=== PATIENT | male | born 1995 | race Caucasian/White ===

== ENCOUNTER 2019-09-15 08:34 | Emergency (ER) | payer OTHER ==
[2019-09-15 08:44] VITALS: RESP 16; TEMP 97.4
[2019-09-15] MEDS ORDERED: SODIUM CHLORIDE 0.9% 1,000 ML IV STA ×2 (08:54)
[2019-09-15] MEDS ORDERED: MORPHINE SULFATE 4 MG/ML SYRINGE IV STA (08:54)
[2019-09-15] MEDS ORDERED: KETOROLAC 30 MG/ML 1 ML VIAL IVP STA (08:54)
[2019-09-15] MEDS ORDERED: ONDANSETRON 4 MG/2 ML VIAL IVP STA (08:54)
--- NOTE | 2019-09-15 08:57 | ED ---
Abdominal Pain HPI - General Chief Complaint: Abdominal Pain Stated Complaint: Abd Pain Time Seen by Provider: 09/15/19 08:45 Source: patient, RN notes reviewed, old records reviewed Mode of arrival: ambulatory Limitations: no limitations - History of Present Illness Initial Comments: Patient is a 24-year-old male, presents emergency department today for sudden onset of right-sided flank pain. Symptoms started 2 hours ago. Patient states that he's noticed a cloudy urine. Had kidney stones in the past. This would be his third one. He moved here from [place]. Does not have a urologist at this time. He does report multiple times of vomiting today. He did have 2 episodes vomiting yesterday but denied any flank pain at that time. Patient states he's had no fevers or chills. - Related Data Previous Rx's Medication Instructions Recorded Acetaminophen-Codeine 300-30mg 1 tab PO Q4H PRN 3 Days #12 tablet 09/15/19 [Tylenol w/codeine #3] Ketorolac [Toradol] 10 mg PO Q6HR #12 tab 09/15/19 Ondansetron [Zofran] 4 mg PO Q8HR PRN #8 tab 09/15/19 Tamsulosin [Flomax] 0.4 mg PO DAILY #5 cap 09/15/19 Allergies Allergy/AdvReac Type Severity Reaction Status Date / Time amoxicillin Allergy Unknown Verified 09/15/19 08:44 Penicillins Allergy Unknown Verified 09/15/19 08:44 Review of Systems ROS Statement: Those systems with pertinent positive or pertinent negative responses have been documented in the HPI. ROS Other: All systems not noted in ROS Statement are negative. Past Medical History Additional Past Medical History / Comment(s): KIDNEY STONE Past Surgical History: No Surgical Hx Reported Past Psychological History: Anxiety Smoking Status: Never smoker Past Alcohol Use History: Daily Past Drug Use History: None Reported General Exam - General Exam Comments Initial Comments: 24-year-old male. Alert and oriented. No distress. Limitations: no limitations General appearance: alert, in no apparent distress Head exam: Present: atraumatic, normocephalic, normal inspection Eye exam: Present: normal appearance, PERRL, EOMI. Absent: scleral icterus, conjunctival injection, periorbital swelling ENT exam: Present: normal exam, mucous membranes moist Neck exam: Present: normal inspection. Absent: tenderness, meningismus, lymphadenopathy Respiratory exam: Present: normal lung sounds bilaterally. Absent: respiratory distress, wheezes, rales, rhonchi, stridor Cardiovascular Exam: Present: regular rate, normal rhythm, normal heart sounds. Absent: systolic murmur, diastolic murmur, rubs, gallop, clicks GI/Abdominal exam: Present: soft, normal bowel sounds. Absent: distended, tenderness, guarding, rebound, rigid Extremities exam: Present: normal inspection, full ROM, normal capillary refill. Absent: tenderness, pedal edema, joint swelling, calf tenderness Back exam: Present: normal inspection, CVA tenderness (R) (CVA tenderness.) Neurological exam: Present: alert, oriented X3, CN II-XII intact Psychiatric exam: Present: normal affect, normal mood Skin exam: Present: warm, dry, intact, normal color. Absent: rash Course Vital Signs 09/15/19 09/15/19 08:42 10:34 Temperature 97.4 F L Pulse Rate 73 72 Respiratory 16 16 Rate Blood Pressure 135/85 123/79 O2 Sat by Pulse 98 100 Oximetry Medical Decision Making - Medical Decision Making 24-year-old male presents today for onset of right-sided flank pain. knuckle presentations concern for kidney stone. Patient has some right-sided CVA tenderness. Vital signs are stable. Patient's urinalysis did just some white blood cells but no significant red. Due to persistent pain. Discussed possibly still concern for stone. They state the systolic all this previous kidney stone pains. The Patient does report some dysuria. Patient had a CAT scan which shows no obstructing stone or nephrolithiasis at this time. Patient has some concern for colitis that he's had no diarrhea or vomiting. Patient was given 1 dose of Rocephin and emergency department for concerns for UTI. On my review of the CAT scan does appear that there could be a 4 mm stone right at the UVJ. Patient is informed of this result. I discussed that we can treat the Patient this time with a short percent and temperature medication and have him follow-up with urology. All questions were answered. - Lab Data Result diagrams: 09/15/19 08:49 09/15/19 08:49 Lab Results 09/15/19 09/15/19 09/15/19 Range/Units 08:49 08:49 08:49 WBC 9.2 (3.8-10.6) k/uL RBC 5.28 (4.30-5.90) m/uL Hgb 16.8 (13.0-17.5) gm/dL Hct 50.1 (39.0-53.0) % MCV 94.8 (80.0-100.0) fL MCH 31.7 (25.0-35.0) pg MCHC 33.5 (31.0-37.0) g/dL RDW 12.5 (11.5-15.5) % Plt Count 345 (150-450) k/uL Neutrophils % 74 % Lymphocytes % 16 % Monocytes % 5 % Eosinophils % 0 % Basophils % 0 % Neutrophils # 6.9 (1.3-7.7) k/uL Lymphocytes # 1.4 (1.0-4.8) k/uL Monocytes # 0.5 (0-1.0) k/uL Eosinophils # 0.0 (0-0.7) k/uL Basophils # 0.0 (0-0.2) k/uL PT 11.4 (9.0-12.0) sec INR 1.1 (<1.2) APTT 27.8 (22.0-30.0) sec Sodium 140 (137-145) mmol/L Potassium 4.7 (3.5-5.1) mmol/L Chloride 104 (98-107) mmol/L Carbon Dioxide 25 (22-30) mmol/L Anion Gap 11 mmol/L BUN 16 (9-20) mg/dL Creatinine 0.91 (0.66-1.25) mg/dL Est GFR (CKD-EPI)AfAm >90 (>60 ml/min/1.73 sqM) Est GFR (CKD-EPI)NonAf >90 (>60 ml/min/1.73 sqM) Glucose 97 (74-99) mg/dL Calcium 10.3 H (8.4-10.2) mg/dL Total Bilirubin 0.8 (0.2-1.3) mg/dL AST 29 (17-59) U/L ALT 34 (4-49) U/L Alkaline Phosphatase 61 (38-126) U/L Total Protein 8.5 H (6.3-8.2) g/dL Albumin 5.3 H (3.5-5.0) g/dL Amylase 73 (30-110) U/L Lipase 98 (23-300) U/L Urine Color Urine Appearance (Clear) Urine pH (5.0-8.0) Ur Specific [place] (1.001-1.035) Urine Protein (Negative) Urine Glucose (UA) (Negative) Urine Ketones (Negative) Urine Blood (Negative) Urine Nitrite (Negative) Urine Bilirubin (Negative) Urine Urobilinogen (<2.0) mg/dL Ur Leukocyte Esterase (Negative) Urine RBC (0-5) /hpf Urine WBC (0-5) /hpf Ur Squamous Epith Cells (0-4) /hpf Urine Mucus (None) /hpf 09/15/19 Range/Units 09:48 WBC (3.8-10.6) k/uL RBC (4.30-5.90) m/uL Hgb (13.0-17.5) gm/dL Hct (39.0-53.0) % MCV (80.0-100.0) fL MCH (25.0-35.0) pg MCHC (31.0-37.0) g/dL RDW (11.5-15.5) % Plt Count (150-450) k/uL Neutrophils % % Lymphocytes % % Monocytes % % Eosinophils % % Basophils % % Neutrophils # (1.3-7.7) k/uL Lymphocytes # (1.0-4.8) k/uL Monocytes # (0-1.0) k/uL Eosinophils # (0-0.7) k/uL Basophils # (0-0.2) k/uL PT (9.0-12.0) sec INR (<1.2) APTT (22.0-30.0) sec Sodium (137-145) mmol/L Potassium (3.5-5.1) mmol/L Chloride (98-107) mmol/L Carbon Dioxide (22-30) mmol/L Anion Gap mmol/L BUN (9-20) mg/dL Creatinine (0.66-1.25) mg/dL Est GFR (CKD-EPI)AfAm (>60 ml/min/1.73 sqM) Est GFR (CKD-EPI)NonAf (>60 ml/min/1.73 sqM) Glucose (74-99) mg/dL Calcium (8.4-10.2) mg/dL Total Bilirubin (0.2-1.3) mg/dL AST (17-59) U/L ALT (4-49) U/L Alkaline Phosphatase (38-126) U/L Total Protein (6.3-8.2) g/dL Albumin (3.5-5.0) g/dL Amylase (30-110) U/L Lipase (23-300) U/L Urine Color Yellow Urine Appearance Cloudy (Clear) Urine pH 6.0 (5.0-8.0) Ur Specific [place] 1.031 (1.001-1.035) Urine Protein 1+ H (Negative) Urine Glucose (UA) Negative (Negative) Urine Ketones Negative (Negative) Urine Blood Negative (Negative) Urine Nitrite Negative (Negative) Urine Bilirubin Negative (Negative) Urine Urobilinogen <2.0 (<2.0) mg/dL Ur Leukocyte Esterase Moderate H (Negative) Urine RBC 1 (0-5) /hpf Urine WBC 8 H (0-5) /hpf Ur Squamous Epith Cells <1 (0-4) /hpf Urine Mucus Many H (None) /hpf - Radiology Data Radiology results: report reviewed CT shows bilateral nonobstructing nephrolithiasis. Labs of the colon involving the proximal transverse colon and descending colon and sigmoid colon. Correlate for excluding colitis. Bilateral lysis at L5 with grade 1 spondylolisthesis of L5-S1. Disposition Clinical Impression: Right flank pain Disposition: HOME SELF-CARE Condition: Good Instructions (If sedation given, give patient instructions): Flank Pain (ED) Additional Instructions: Patient advised to rest, remain hydrated. Take the pain medication and Flomax as prescribed. Return to the emergency department if any alarming signs or symptoms occur. Prescriptions: Tamsulosin [Flomax] 0.4 mg PO DAILY #5 cap Ketorolac [Toradol] 10 mg PO Q6HR #12 tab Acetaminophen-Codeine 300-30mg [Tylenol w/codeine #3] 1 tab PO Q4H PRN 3 Days #12 tablet PRN Reason: Pain Ondansetron [Zofran] 4 mg PO Q8HR PRN #8 tab PRN Reason: Nausea And Vomiting Is patient prescribed a controlled substance at d/c from ED?: No Referrals: Nonstaff,Physician [REFERRING] - 1-2 days Leopoldo Forrest MD [STAFF PHYSICIAN] - 1-2 days Time of Disposition: 11:32
[2019-09-15 09:15] LABS: INR 1.1 (<1.2); Partial Thromboplastin Time 27.8 sec (22.0-30.0); Prothrombin Time 11.4 sec (9.0-12.0)
[2019-09-15 09:16] LABS: ALT 34 U/L (4-49); AST 29 U/L (17-59); African American GFR (CKD) >90 (>60 ml/min/1.73 sqM); Albumin 5.3 g/dL (3.5-5.0); Alkaline Phosphatase 61 U/L (38-126); Amylase 73 U/L (30-110); Anion Gap 11 mmol/L; Blood Urea Nitrogen 16 mg/dL (9-20); Calcium 10.3 mg/dL (8.4-10.2); Carbon Dioxide 25 mmol/L (22-30); Chloride 104 mmol/L (98-107); Glucose 97 mg/dL (74-99); Non-African American GFR(CKD) >90 (>60 ml/min/1.73 sqM); Potassium 4.7 mmol/L (3.5-5.1); Sodium 140 mmol/L (137-145); Total Bilirubin 0.8 mg/dL (0.2-1.3); Total Protein 8.5 g/dL (6.3-8.2)
[2019-09-15 09:20] LABS: Basophils % (A) 0 %; Eosinophils % (A) 0 %; HCT 50.1 % (39.0-53.0); HGB 16.8 gm/dL (13.0-17.5); Lymphocytes # (A) 1.4 k/uL (1.0-4.8); Lymphocytes % (A) 16 %; MCH 31.7 pg (25.0-35.0); MCHC 33.5 g/dL (31.0-37.0); MCV 94.8 fL (80.0-100.0); Mean Platelet Volume 7.7; Monocytes # (A) 0.5 k/uL (0-1.0); Monocytes % (A) 5 %; Neutrophils # (A) 6.9 k/uL (1.3-7.7); Neutrophils % (A) 74 %; Platelet Count 345 k/uL (150-450); RBC 5.28 m/uL (4.30-5.90); RDW 12.5 % (11.5-15.5); WBC 9.2 k/uL (3.8-10.6)
--- NOTE | 2019-09-15 09:45 | XR ---
EXAMINATION TYPE: XR KUB , 2 VIEWS DATE OF EXAM ORDERED: 09/15/2019 HISTORY: abdominal pain. COMPARISON: None. FINDINGS: Lung bases are clear. Within the abdomen, the abdominal gas pattern is normal. There is no evidence of obstruction or free air. No unusual calcifications are seen. IMPRESSION: NO ACUTE INTRA-ABDOMINAL ABDOMINAL ABNORMALITY.
[2019-09-15 10:08] LABS: Appearance,Urine Cloudy (Clear); Bilirubin,Urine Negative (Negative); Blood,Urine Negative (Negative); Color,Urine Yellow; Glucose,Urine (UA) Negative (Negative); Ketones,Urine Negative (Negative); Leukocyte Esterase,Urine Moderate (Negative); Mucus,Urine Many /hpf; Nitrite,Urine Negative (Negative); Protein,Urine 1+ (Negative); RBC,Urine 1 /hpf (0-5); Specific Gravity,Urine 1.031 (1.001-1.035); Squamous Epithelial Cell,Urine <1 /hpf (0-4); Urobilinogen,Urine <2.0 mg/dL (<2.0); WBC,Urine 8 /hpf (0-5)
[2019-09-15] MEDS ORDERED: cefTRIAXone IN SWFI 1,000 MG/10 ML SYRINGE IVP STA (10:16)
[2019-09-15] MEDS ORDERED: HYDROmorphone 1 MG/ML 1 ML SYRINGE IVP STA (10:24)
--- NOTE | 2019-09-15 10:42 | CT ---
EXAMINATION TYPE: CT abdomen pelvis wo con DATE OF EXAM: 09/15/2019 COMPARISON: None. HISTORY: Right flank pain CT DLP: 365.8 mGycm Automated exposure control for dose reduction was used. FINDINGS: Visualized portions of the lungs are clear. There is no pleural or pericardial fluid. The h eart is not enlarged. Within the abdomen, the liver, spleen and gallbladder are normal. Both adrenal glands are normal. There is 2 mm calculus in the anterior middle pole calyx of the right kidney. There is a 2 to 3 mm ca lculus in the anterior lower pole calyx of the right kidney. There is no evidence of hydronephrosis. There is a 4 mm calculus in the posterior pole calyx of the left kidney. There is a smaller 1 to 2 mm calculus in the anterior middle pole calyx of the left kidney. There is no evidence of hydronephrosi s. Very Limited views of the pancreas are normal. There is no significant retroperitoneal, inguinal or iliac adenopathy. The bladder is collapsed. There is no significant diverticular change and there is no radiographic evidence of diverticulitis. There is collapse of the proximal transverse colon making assessment wall thickness difficult. There appears to be some thickening of the descending colon and sigmoid colon. Small bowel loops are normal caliber. The bilateral lysis at L5 with a grade 1 spondylolisthesis of L5 on S1. IMPRESSION: 1. BILATERAL NONOBSTRUCTING NEPHROLITHIASIS. 2. COLLAPSE OF THE COLON INVOLVING THE PROXIMAL TRANSVERSE COLON, DESCENDING COLON AND SIGMOID COLON. PLEASE CORRELATE TO EXCLUDE COLITIS. 3. BILATERAL LYSIS AT L5 WITH A GRADE 1 SPONDYLOLISTHESIS OF L5 ON S1.
[2019-09-15] MEDS ORDERED: TAMSULOSIN 0.4 MG CAP.ER.24H PO STA (11:43)
[2019-09-15 12:21] VITALS: BP 122/65; PULSE 69
[2019-09-15] MEDS ORDERED: MORPHINE SULFATE 2 MG/ML SYRINGE IVP ONE (12:39)
[2019-09-17 16:37] LABS: C. trachomatis,PCR Negative (Neg,Equiv); Chlamydia trachomatis Source Urine
[2019-09-17 16:44] LABS: N. gonorrhoeae,PCR Negative (Neg,Equiv); Neisseria Source Urine
== END 2019-09-15 12:45 | disposition home or self-care (01) ==
LOC: EC 08:34
DX: R10.9 Unspecified abdominal pain (principal); R11.10 Vomiting, unspecified; Z88.0 Allergy status to penicillin
CPT/HCPCS: 36415; 80053; 82150; 83690; 85025; 85610; 85730; 81001; 87491; 87591; 87086; 74018; 74176; 99285; 96374; 96375 ×4; 96376; 96361 ×3; J2270 ×2; J2405; J0696; J1885; J1170

== ENCOUNTER 2019-12-12 13:50 | Emergency (ER) | payer OTHER ==
[2019-12-12 14:16] VITALS: BP 131/91; PULSE 103; RESP 20; TEMP 98.5
[2019-12-12] MEDS ORDERED: HYDROcodone/APAP 7.5-325MG 1 EACH TAB PO ONE (14:25)
[2019-12-12] MEDS ORDERED: IBUPROFEN 600 MG TAB PO STA (14:25)
[2019-12-12] MEDS ORDERED: ACET/COD 300 MG/30 MG STARTER PACK 6 TAB BTL PO STA (14:25)
--- NOTE | 2019-12-12 14:29 | ED ---
ENT HPI - General Chief complaint: Dental/Oral Stated complaint: Dental Pain Time Seen by Provider: 12/12/19 14:19 Source: patient, RN notes reviewed Mode of arrival: ambulatory Limitations: no limitations - History of Present Illness Initial comments: 24-year-old male presents emergency department tingling left lower dental pain. Patient had severe pain. Patient states that he had a filling fall last week states his tooth cracked denies severe pain. Patient is an appointment with his dentist tomorrow. Patient denies any fevers chills he states he cannot tolerate the pain is concern for possible infection. - Related Data Previous Rx's Medication Instructions Recorded Acetaminophen-Codeine 300-30mg 1 tab PO Q4H PRN 3 Days #12 tablet 09/15/19 [Tylenol w/codeine #3] Ketorolac [Toradol] 10 mg PO Q6HR #12 tab 09/15/19 Ondansetron [Zofran] 4 mg PO Q8HR PRN #8 tab 09/15/19 Tamsulosin [Flomax] 0.4 mg PO DAILY #5 cap 09/15/19 Clindamycin HCl 300 mg PO Q6HR #40 cap 12/12/19 Allergies Allergy/AdvReac Type Severity Reaction Status Date / Time amoxicillin Allergy Unknown Verified 12/12/19 14:14 Penicillins Allergy Unknown Verified 12/12/19 14:14 Review of Systems ROS Statement: Those systems with pertinent positive or pertinent negative responses have been documented in the HPI. ROS Other: All systems not noted in ROS Statement are negative. Past Medical History Additional Past Medical History / Comment(s): KIDNEY STONE Past Surgical History: No Surgical Hx Reported Past Psychological History: Anxiety Smoking Status: Never smoker Past Alcohol Use History: Daily, Rare Past Drug Use History: None Reported General Exam Limitations: no limitations General appearance: alert, in no apparent distress Head exam: Present: atraumatic, normocephalic, normal inspection Eye exam: Present: normal appearance, PERRL, EOMI. Absent: scleral icterus, conjunctival injection, periorbital swelling ENT exam: Present: mucous membranes moist. Absent: normal exam, normal oropharynx (Dental fracture left lower no drainable abscess) Neck exam: Present: normal inspection, full ROM. Absent: tenderness, meningismus, lymphadenopathy Respiratory exam: Present: normal lung sounds bilaterally. Absent: respiratory distress, wheezes, rales, rhonchi, stridor Cardiovascular Exam: Present: regular rate, normal rhythm, normal heart sounds. Absent: systolic murmur, diastolic murmur, rubs, gallop, clicks Course Vital Signs 12/12/19 14:14 Temperature 98.5 F Pulse Rate 103 H Respiratory 20 Rate Blood Pressure 131/91 O2 Sat by Pulse 99 Oximetry Medical Decision Making - Medical Decision Making Patient has dental fracture left lower there is concern for dental infection and she's had increase in pain we started on clindamycin and has appointment with dentist tomorrow. Disposition Clinical Impression: Fracture of tooth, Toothache Disposition: HOME SELF-CARE Condition: Stable Instructions (If sedation given, give patient instructions): Toothache (ED) Additional Instructions: Please return to the Emergency Department if symptoms worsen or any other concerns. Prescriptions: Clindamycin HCl 300 mg PO Q6HR #40 cap Is patient prescribed a controlled substance at d/c from ED?: No Referrals: None,Stated [Primary Care Provider] - 1-2 days Time of Disposition: 14:28
== END 2019-12-12 14:36 | disposition home or self-care (01) ==
LOC: EC 13:50
DX: S02.5XXA Fracture of tooth (traumatic), initial encounter for closed fracture (principal); Z88.0 Allergy status to penicillin; W19.XXXA Unspecified fall, initial encounter
CPT/HCPCS: 99282

== ENCOUNTER 2020-02-19 08:35 | Emergency (ER) | payer OTHER ==
[2020-02-19 08:42] VITALS: BP 118/83; PULSE 83; RESP 18; TEMP 97.4
--- NOTE | 2020-02-19 09:04 | ED ---
Psych HPI - General Chief Complaint: Psychiatric Symptoms Stated Complaint: withdrawal Time Seen by Provider: 02/19/20 08:46 Source: patient Mode of arrival: ambulatory - History of Present Illness Initial Comments: Patient is 24-year-old male presenting to emergency Department with a chief complaint of opiate withdrawal. Patient has a history of fentanyl abuse. Patient reports he uses fentanyl almost daily. Reports 2 days ago he saw who started him on a Suboxone treatment. Patient reports yesterday at 1500 was the last dose of fentanyl. Patient reports this morning is 0600 he took 8 mg of Suboxone. Patient reports his withdrawal symptoms have not resolved. States states he is even more jittery along with nausea and vomiting. Patient states he wants to "crawl out of his skin". - Related Data Previous Rx's Medication Instructions Recorded Acetaminophen-Codeine 300-30mg 1 tab PO Q4H PRN 3 Days #12 tablet 09/15/19 [Tylenol w/codeine #3] Ketorolac [Toradol] 10 mg PO Q6HR #12 tab 09/15/19 Ondansetron [Zofran] 4 mg PO Q8HR PRN #8 tab 09/15/19 Tamsulosin [Flomax] 0.4 mg PO DAILY #5 cap 09/15/19 Clindamycin HCl 300 mg PO Q6HR #40 cap 12/12/19 Allergies Allergy/AdvReac Type Severity Reaction Status Date / Time amoxicillin Allergy Unknown Verified 02/19/20 08:42 Penicillins Allergy Unknown Verified 02/19/20 08:42 Review of Systems ROS Statement: Those systems with pertinent positive or pertinent negative responses have been documented in the HPI. ROS Other: All systems not noted in ROS Statement are negative. Past Medical History Additional Past Medical History / Comment(s): KIDNEY STONE, fentnyl abuse - snort History of Any Multi-Drug Resistant Organisms: None Reported Past Surgical History: No Surgical Hx Reported Additional Past Surgical History / Comment(s): finger Past Psychological History: Anxiety Smoking Status: Never smoker Past Alcohol Use History: Daily, Rare Past Drug Use History: Opiates General Exam Limitations: no limitations General appearance: alert, anxious Head exam: Present: atraumatic, normocephalic, normal inspection Eye exam: Present: normal appearance Pupils: Present: miosis ENT exam: Present: normal exam, mucous membranes moist Neck exam: Present: normal inspection, full ROM Respiratory exam: Present: normal lung sounds bilaterally Cardiovascular Exam: Present: regular rate, normal rhythm, normal heart sounds Extremities exam: Present: normal inspection, full ROM Back exam: Present: normal inspection, full ROM Neurological exam: Present: alert, oriented X3 Psychiatric exam: Present: normal affect, anxious, other (Tremors) Skin exam: Present: warm, dry, intact, normal color Course Vital Signs 02/19/20 08:37 Temperature 97.4 F L Pulse Rate 83 Respiratory 18 Rate Blood Pressure 118/83 O2 Sat by Pulse 100 Oximetry Medical Decision Making - Medical Decision Making Patient is a 24-year-old male with history of mental abuse presenting to the emergency department with a chief complaint of opiate withdrawal. Patient used fentanyl yesterday. Today at 0600 started on Suboxone. Patient reports his withdrawal symptoms have not resolved even after starting medication. On exam patient is tremulous, clammy, anxious with nausea and vomiting. Patient was given IM Zofran and Benadryl. I had a thorough discussion with the patient regarding opiate abuse. Patient reports some improvement in symptoms. Patient will be discharged and advised to follow-up with his primary care. Return parameters discussed. Case discussed with physician. Disposition Clinical Impression: Opiate withdrawal Disposition: HOME SELF-CARE Condition: Good Instructions (If sedation given, give patient instructions): Opioid Withdrawal (ED), Narcotic Withdrawal (ED) Additional Instructions: Follow up with primary care. Return to emergency department if symptoms worsen. Is patient prescribed a controlled substance at d/c from ED?: No Referrals: Marlon Foley MD [Primary Care Provider] - 1-2 days Time of Disposition: 09:27
[2020-02-19] MEDS ORDERED: cloNIDine HCL 0.1 MG TAB PO STA (09:09)
[2020-02-19] MEDS ORDERED: ONDANSETRON 4 MG/2 ML VIAL IVP STA (09:10)
[2020-02-19] MEDS ORDERED: SODIUM CHLORIDE 0.9% 1,000 ML IV STA (09:10)
[2020-02-19] MEDS ORDERED: diphenhydrAMINE 50 MG/ML 1 ML VIAL IM STA ×2 (09:15→09:19)
[2020-02-19] MEDS ORDERED: ONDANSETRON 4 MG/2 ML VIAL IM STA (09:19)
== END 2020-02-19 09:32 | disposition home or self-care (01) ==
LOC: SUPCPDRO 08:35 → EC 08:35
DX: F11.23 Opioid dependence with withdrawal (principal); R11.2 Nausea with vomiting, unspecified; Z88.0 Allergy status to penicillin
CPT/HCPCS: 99283; 96372 ×2; J1200; J2405

== ENCOUNTER 2020-10-12 18:38 | Emergency (ER) | payer OTHER ==
[2020-10-12 18:41] VITALS: RESP 18; TEMP 98.7
--- NOTE | 2020-10-12 18:45 | ED ---
Nausea/Vomiting/Diarrhea HPI - General Chief complaint: Nausea/Vomiting/Diarrhea Stated complaint: nausea, vomiting Time Seen by Provider: 10/12/20 18:43 Source: patient Mode of arrival: ambulatory Limitations: no limitations - History of Present Illness Initial comments: 25-year-old male presenting to the emergency department with a chief complaint of nausea vomiting diarrhea. States the symptoms started about 4 days ago after he woke up in the morning. Patient states the night prior today he went out to eat at a local restaurant. Patient states he had chicken Parmesan pizza but did not have any symptoms immediately afterwards. Patient reports nausea with multiple episodes, loose nonbloody vomiting. He also reports profuse watery diarrhea. States he is not able to keep any food down over the past 2 days. States she has been attempting to drink fluids. He also reports generalized fatigue over the last 2 days because he is not able to keep anything down. Patient reports no significant abdominal, chest or back pain. Denies any urin travis symptoms. Denies any penile discharge, testicular swelling or tenderness. - Related Data Home Medications Medication Instructions Recorded Confirmed Buprenorphine HCl/Naloxone HCl 1 film SL BID 10/12/20 10/12/20 [Suboxone 8 mg-2 mg Sl Film] QUEtiapine [SEROquel] 100 mg PO HS 10/12/20 10/12/20 Allergies Allergy/AdvReac Type Severity Reaction Status Date / Time amoxicillin Allergy Unknown Verified 10/12/20 19:27 Penicillins Allergy Unknown Verified 10/12/20 19:27 Review of Systems ROS Statement: Those systems with pertinent positive or pertinent negative responses have been documented in the HPI. ROS Other: All systems not noted in ROS Statement are negative. Past Medical History Additional Past Medical History / Comment(s): KIDNEY STONE History of Any Multi-Drug Resistant Organisms: None Reported Past Surgical History: No Surgical Hx Reported Additional Past Surgical History / Comment(s): finger Past Psychological History: Anxiety Smoking Status: Vaper Past Alcohol Use History: Daily, Rare Past Drug Use History: Opiates General Exam Limitations: no limitations General appearance: alert, in no apparent distress Head exam: Present: atraumatic, normal inspection Eye exam: Present: normal appearance, PERRL, EOMI Pupils: Present: normal accommodation ENT exam: Present: normal exam, normal oropharynx, mucous membranes moist, TM's normal bilaterally, normal external ear exam Neck exam: Present: normal inspection, full ROM. Absent: tenderness Respiratory exam: Present: normal lung sounds bilaterally. Absent: respiratory distress, wheezes, rales Cardiovascular Exam: Present: regular rate, normal rhythm, normal heart sounds. Absent: systolic murmur, diastolic murmur GI/Abdominal exam: Present: soft. Absent: distended, guarding, rebound, rigid Extremities exam: Present: normal inspection, full ROM, normal capillary refill. Absent: tenderness, pedal edema, joint swelling Back exam: Present: normal inspection, full ROM. Absent: tenderness, CVA tenderness (R), CVA tenderness (L) Neurological exam: Present: alert, oriented X3, normal gait Psychiatric exam: Present: normal affect, normal mood Skin exam: Present: warm, dry, intact, normal color Course Vital Signs 10/12/20 10/12/20 18:39 20:39 Temperature 98.7 F 98.7 F Pulse Rate 80 75 Respiratory 18 18 Rate Blood Pressure 135/85 130/73 O2 Sat by Pulse 99 100 Oximetry Medical Decision Making - Medical Decision Making 25-year-old male presenting to emergency Department with a chief complaint of nausea vomiting diarrhea. On physical examination, patient has no abdominal tenderness. No CVA tenderness as well. CBC CMP unremarkable. He does have mild elevation ALT. UA shows no significant findings. Patient was given antiemetics and IV fluids. On reevaluation patient reports improvement of symptoms. He will be discharged with Zofran advised to obtain [id number] antidiarrheal medication. Also advised to follow bananas, rice applesauce and toast diet. I suspect the patient likely has gastritis after eating out at a restaurant. Strict return parameters were thoroughly discussed the patient is understanding and agreeable. Case discussed with physician. - Lab Data Result diagrams: 10/12/20 18:59 10/12/20 18:59 Lab Results 10/12/20 10/12/20 10/12/20 Range/Units 18:59 18:59 19:14 WBC 8.4 (3.8-10.6) k/uL RBC 5.18 (4.30-5.90) m/uL Hgb 15.8 (13.0-17.5) gm/dL Hct 47.9 (39.0-53.0) % MCV 92.5 (80.0-100.0) fL MCH 30.5 (25.0-35.0) pg MCHC 32.9 (31.0-37.0) g/dL RDW 12.9 (11.5-15.5) % Plt Count 241 (150-450) k/uL MPV 7.2 Neutrophils % (Manual) 64 % Band Neuts % (Manual) 2 % Lymphocytes % (Manual) 27 % Monocytes % (Manual) 5 % Eosinophils % (Manual) 2 % Neutrophils # (Manual) 5.50 (1.3-7.7) k/uL Lymphocytes # (Manual) 2.27 (1.0-4.8) k/uL Monocytes # (Manual) 0.42 (0-1.0) k/uL Eosinophils # (Manual) 0.17 (0-0.7) k/uL Nucleated RBCs 0 (0-0) /100 WBC Manual Slide Review Performed Sodium 141 (137-145) mmol/L Potassium 3.9 (3.5-5.1) mmol/L Chloride 102 (98-107) mmol/L Carbon Dioxide 30 (22-30) mmol/L Anion Gap 9 mmol/L BUN 11 (9-20) mg/dL Creatinine 0.89 (0.66-1.25) mg/dL Est GFR (CKD-EPI)AfAm >90 (>60 ml/min/1.73 sqM) Est GFR (CKD-EPI)NonAf >90 (>60 ml/min/1.73 sqM) Glucose 95 (74-99) mg/dL Calcium 9.5 (8.4-10.2) mg/dL Total Bilirubin 0.4 (0.2-1.3) mg/dL AST 44 (17-59) U/L ALT 94 H (4-49) U/L Alkaline Phosphatase 56 (38-126) U/L Total Protein 7.8 (6.3-8.2) g/dL Albumin 4.7 (3.5-5.0) g/dL Lipase 100 (23-300) U/L Urine Color Yellow Urine Appearance Clear (Clear) Urine pH 6.0 (5.0-8.0) Ur Specific [place] 1.027 (1.001-1.035) Urine Protein Trace H (Negative) Urine Glucose (UA) Negative (Negative) Urine Ketones Negative (Negative) Urine Blood Trace H (Negative) Urine Nitrite Negative (Negative) Urine Bilirubin Negative (Negative) Urine Urobilinogen <2.0 (<2.0) mg/dL Ur Leukocyte Esterase Negative (Negative) Urine RBC 6 H (0-5) /hpf Urine WBC 1 (0-5) /hpf Urine Mucus Moderate H (None) /hpf Disposition Clinical Impression: Gastroenteritis, Nausea vomiting and diarrhea Disposition: HOME SELF-CARE Condition: Stable Instructions (If sedation given, give patient instructions): Gastroenteritis (DC) Additional Instructions: Drink Gatorade or Pedialyte. Follow the bananas, rice, applesauce and toast diet. Take prescribed medication as directed. Obtain [id number] antidiarrheal medication. Return to emergency department if symptoms worsen. Is patient prescribed a controlled substance at d/c from ED?: No Referrals: Nonstaff,Physician [Primary Care Provider] - 1-2 days Time of Disposition: 20:25
[2020-10-12] MEDS ORDERED: ONDANSETRON 4 MG/2 ML VIAL IVP STA (18:50)
[2020-10-12] MEDS ORDERED: SODIUM CHLORIDE 0.9% 1,000 ML IV STA (18:50)
[2020-10-12] MEDS ORDERED: PANTOPRAZOLE 40 MG/10 ML VIAL IVP STA (18:50)
[2020-10-12 19:19] LABS: HCT 47.9 % (39.0-53.0); HGB 15.8 gm/dL (13.0-17.5); MCH 30.5 pg (25.0-35.0); MCHC 32.9 g/dL (31.0-37.0); MCV 92.5 fL (80.0-100.0); Mean Platelet Volume 7.2; Platelet Count 241 k/uL (150-450); RBC 5.18 m/uL (4.30-5.90); RDW 12.9 % (11.5-15.5); WBC 8.4 k/uL (3.8-10.6)
[2020-10-12 19:22] LABS: Appearance,Urine Clear (Clear); Bilirubin,Urine Negative (Negative); Blood,Urine Trace (Negative); Color,Urine Yellow; Glucose,Urine (UA) Negative (Negative); Ketones,Urine Negative (Negative); Leukocyte Esterase,Urine Negative (Negative); Mucus,Urine Moderate /hpf; Nitrite,Urine Negative (Negative); Protein,Urine Trace (Negative); RBC,Urine 6 /hpf (0-5); Specific Gravity,Urine 1.027 (1.001-1.035); Urobilinogen,Urine <2.0 mg/dL (<2.0); WBC,Urine 1 /hpf (0-5)
[2020-10-12 19:23] LABS: ALT 94 U/L (4-49); AST 44 U/L (17-59); African American GFR (CKD) >90 (>60 ml/min/1.73 sqM); Albumin 4.7 g/dL (3.5-5.0); Alkaline Phosphatase 56 U/L (38-126); Anion Gap 9 mmol/L; Blood Urea Nitrogen 11 mg/dL (9-20); Calcium 9.5 mg/dL (8.4-10.2); Carbon Dioxide 30 mmol/L (22-30); Chloride 102 mmol/L (98-107); Glucose 95 mg/dL (74-99); Lipase 100 U/L (23-300); Non-African American GFR(CKD) >90 (>60 ml/min/1.73 sqM); Potassium 3.9 mmol/L (3.5-5.1); Sodium 141 mmol/L (137-145); Total Bilirubin 0.4 mg/dL (0.2-1.3); Total Protein 7.8 g/dL (6.3-8.2)
[2020-10-12 20:40] VITALS: BP 130/73; PULSE 75
[2020-10-12 20:44] LABS: Band Neutrophils % 2 %; Eosinophils # (M) 0.17 k/uL (0-0.7); Lymphocytes # (M) 2.27 k/uL (1.0-4.8); Monocytes # (M) 0.42 k/uL (0-1.0); Neutrophils % (M) 64 %; Nucleated Red Blood Cells 0 /100 WBC (0-0); Total Cells Counted 100
== END 2020-10-12 20:40 | disposition home or self-care (01) ==
LOC: EC 18:38
DX: K52.9 Noninfective gastroenteritis and colitis, unspecified (principal); F41.9 Anxiety disorder, unspecified; F17.290 Nicotine dependence, other tobacco product, uncomplicated; Z79.899 Other long term (current) drug therapy; Z88.0 Allergy status to penicillin
CPT/HCPCS: 36415; 80053; 83690; 85025; 81001; 99284; 96374; 96375; 96361; J2405; C9113

== ENCOUNTER 2020-11-11 11:09 | Emergency (ER) | payer OTHER ==
[2020-11-11 11:19] VITALS: TEMP 97.8
[2020-11-11] MEDS ORDERED: ONDANSETRON 4 MG/2 ML VIAL IVP STA (11:47)
[2020-11-11] MEDS ORDERED: SODIUM CHLORIDE 0.9% 500 ML 500 ML IV ONE (11:47)
[2020-11-11] MEDS ORDERED: KETOROLAC 15 MG/ML 1 ML VIAL IVP STA (11:47)
--- NOTE | 2020-11-11 11:51 | ED ---
Abdominal Pain HPI - General Chief Complaint: Abdominal Pain Stated Complaint: Detox Source: patient, EMS Mode of arrival: EMS Limitations: no limitations - History of Present Illness Initial Comments: 25-year-old male with history of heroin abuse presenting for "addiction help". Patient states that he is addicted to heroin and has attempted rehab multiple times without success. pt states he has been decreasing use and "did a little bit" of heroin at 2AM this morning because he felt like he was withdrawing. Patient states he always gets a slight headache chills nausea and loose stools and generalized body pain when he withdraws from opioids. Patient states he didnt come for symptomatic treatment but thought we might have rehabiliation center. patient denies additional complaints. denies this being wrost headache of life, vision changes, weakness/sensation deficits of extremities, denies fevers, neck stiffness, head injuries. Patient appears well nontoxic in no acute distress. - Related Data Home Medications Medication Instructions Recorded Confirmed No Known Home Medications 11/11/20 11/11/20 Allergies Allergy/AdvReac Type Severity Reaction Status Date / Time amoxicillin Allergy Unknown Verified 11/11/20 12:24 Childhood Penicillins Allergy Unknown Verified 11/11/20 12:24 Childhood Review of Systems ROS Statement: Those systems with pertinent positive or pertinent negative responses have been documented in the HPI. ROS Other: All systems not noted in ROS Statement are negative. Past Medical History Additional Past Medical History / Comment(s): KIDNEY STONE History of Any Multi-Drug Resistant Organisms: None Reported Past Surgical History: No Surgical Hx Reported Additional Past Surgical History / Comment(s): finger Past Psychological History: Anxiety Smoking Status: Vaper Past Alcohol Use History: Daily, Rare Past Drug Use History: Heroin, Opiates General Exam - General Exam Comments Initial Comments: General: The patient is awake and alert, in no distress Eye: +3 mm pupils are equal, round and reactive to light, extra-ocular movements are intact. No nystagmus. There is normal conjunctiva bilaterally. No signs of icterus. Ears, nose, mouth and throat: There are moist mucous membranes and no oral lesions. Neck: The neck is supple, there is no tenderness or JVD. Cardiovascular: There is a regular rate and rhythm. No murmur, rub or gallop is appreciated. Respiratory: Lungs are clear to auscultation, respirations are non-labored, breath sounds are equal. No wheezes, stridor, rales, or rhonchi. Gastrointestinal: Soft, non-distended, non-tender abdomen without masses or organomegaly noted. There is no rebound or guarding present. Musculoskeletal: Normal ROM, no tenderness. Strength 5/5. Sensation intact. radial pulses equal bilaterally 2+. Neurological: A&O x 3. CN II-XII intact grossly, There are no obvious motor or sensory deficits. Coordination appears grossly intact. Speech is normal. Skin: Skin is warm and dry and no rashes or lesions are noted. Psychiatric: Cooperative, appropriate mood & affect, normal judgment. Limitations: no limitations Course Vital Signs 11/11/20 11/11/20 11:11 14:39 Temperature 97.8 F Pulse Rate 81 86 Respiratory 18 16 Rate Blood Pressure 141/77 139/79 O2 Sat by Pulse 100 99 Oximetry Medical Decision Making - Medical Decision Making Nontoxic-appearing 25yo male who states he is withdrawing. No suicidal or homicidal ideation. Patient states is his typical symptoms when he does withdraw from heroin. Patient states his father wants him to get help and called EMS to bring him for opioid rehab. As we're not opioid rehab facility or dual diagnosis facility, patient was symptomatically managed however father found outpatient placement for inpatient treatment at [facility]. Pt is agreeable to going to this facility after discharge. patietn discharged appearing well. Dr. Shafer agreeable to care plan. Pt was provided resources for numerous inpatient/outpatient facility and AA meetings Disposition Clinical Impression: Opioid withdrawal Disposition: HOME SELF-CARE Condition: Good Instructions (If sedation given, give patient instructions): Opioid Withdrawal (ED), Opioid Use Disorder (ED) Additional Instructions: Please use medication as discussed. Please follow-up with family doctor in the next 2 days, please use list of resources for opioid rehabiliation centers. Please return to emergency room if the symptoms increase or worsen or for any other concerns. Is patient prescribed a controlled substance at d/c from ED?: No Referrals: None,Stated [Primary Care Provider] - 1-2 days Time of Disposition: 13:13
[2020-11-11] MEDS ORDERED: cloNIDine 0.1 MG/24HR PATCH TRANSDERM SCH (12:00)
[2020-11-11] MEDS ORDERED: LORazepam 2 MG/ML INJ IV STA (13:13)
[2020-11-11 14:40] VITALS: BP 139/79; PULSE 86; RESP 16
== END 2020-11-11 14:39 | disposition home or self-care (01) ==
LOC: EC 11:09
DX: F11.23 Opioid dependence with withdrawal (principal); F17.290 Nicotine dependence, other tobacco product, uncomplicated; Z88.0 Allergy status to penicillin
CPT/HCPCS: 99284; 96374; 96375 ×2; 96361; J2060; J2405; J1885